=== PATIENT | male | born 1975 | race African-American/Black ===

== ENCOUNTER 2020-10-04 13:35 | Emergency (ER) | payer SELFPAY ==
--- NOTE | 2020-10-04 13:45 | NUR ---
PT IS WAITING IN THE ER WAITING ROOM THERE ARE NO BEDS AVAILABLE. NO ACUTE DISTRESS NOTED.
--- NOTE | 2020-10-04 14:05 | NUR ---
Attempted to triage pt, pt was not found in the ER waiting room.
== END 2020-10-04 14:17 | disposition left against medical advice (07) ==
LOC: ER 13:35
DX: Z75.3 Unavailability and inaccessibility of health-care facilities (principal)